=== PATIENT | female | born 1970 | race Caucasian/White ===

== ENCOUNTER 2016-12-15 06:43 | Day surgery (SDC) | payer BC ==
--- NOTE | ~2016-12-15 | EGD ---
EGD REPORT [facility] [address] [place] [address] NAME: SHANIA ESPINAL : [birth year] [place]US : [place] [facility] [place] [id number] AGE: 46 ADM/REG DATE : 12/15/16 MR#: [id number] REPORT SERV DATE: 12/15/16 DICTATED BY: MEET MONTANO DATE: 12/15/16 REPORT STATUS : Draft TRANS[facility]IBED BY: [facility] DATE: 12/15/16 [facility] Center Patient Name: Shania Espinal Date of : 1970 Attending MD: MEET MONTANO MD Procedure Date No Time: 12/15/2016 Procedure: Upper GI endoscopy Indications: Dysphagia, Heartburn; Nexium 40mg bid; Zantac qhs. Patient Profile: Informed consent was obtained from the patient by me prior to the procedure. Risks, benefits, and alternatives were discussed including the risk of bleeding, perforation, infection, reaction to medicine, missed lesion, and cardiopulmonary complications. Referring MD: SHMUEL ZAMUDIO MD Medicines: Monitored Anesthesia Care Complications: No immediate complications. Procedure: Pre-Anesthesia Assessment: - ASA Grade Assessment: III - A patient with severe systemic disease. After obtaining informed consent, the endoscope was passed under direct vision. Throughout the procedure, the patient's blood pressure, pulse, and oxygen saturations were monitored continuously. The GIF [id number] was introduced through the mouth, and advanced to the second part of duodenum. The endoscope was withdrawn with careful examination all mucosal surfaces including retroflexion stomach. The upper GI endoscopy was accomplished without difficulty. The patient tolerated the procedure well. Findings: The first part of the duodenum and 2nd part of the duodenum were normal. Biopsies were taken with a cold forceps for histology. The entire examined stomach was normal. The Z-line was irregular one 0.5cm tongue, no nodules. Biopsies were taken with a cold forceps for histology. The examined esophagus was normal. Biopsies were taken with a cold forceps for histology from mid and upper. 51F Savary dilation performed over guidewire held in antrum; mild resistance to dilation; endoscopic visualization afterwards no mucosal breaks. Impression: - Normal first part of the duodenum and 2nd part of the duodenum. Biopsied. - Normal stomach. - Z-line irregular,. Biopsied. EGD REPORT [address] [address] NAME: SHANIA ESPINAL : [birth year] STATUS : [facility]#: [id number] AGE: 46 ADM/REG DATE : 12/15/16 MR#: [id number] REPORT SERV DATE: 12/15/16 DICTATED BY: MEET MONTANO DATE: 12/15/16 REPORT STATUS : Draft TRANSCRIBED BY: [facility] DATE: 12/15/16 - Normal esophagus. Biopsied. Dilated. Recommendation: - Patient has a contact number available for emergencies. The signs and symptoms of potential delayed complications were discussed with the patient. Return to normal activities tomorrow. Written discharge instructions were provided to the patient. - Regular diet. - Await pathology results. - Taper Nexium to 20mg bid. Procedure Code(s): --- Professional --- 81593, Esophagogastroduodenoscopy, flexible, transoral; with insertion of guide wire followed by passage of dilator(s) through esophagus over guide wire 97339, Esophagogastroduodenoscopy, flexible, transoral; with biopsy, single or multiple Diagnosis Code(s): --- Professional --- K22.8, Other specified diseases of esophagus R13.10, Dysphagia, unspecified R12, Heartburn CPT copyright 2013 [employer]. All rights reserved. The codes documented in this report are preliminary and upon remote medical coder review may be revised to meet current compliance requirements. MEET MONTANO MD 12/15/2016 8:37 AM This report has been signed electronically. Number of Addenda: 0 Note Initiated On: 12/15/2016 8:15 AM Scope Withdrawal Time 0 hours 0 minutes 0 seconds [address] [id number]
[~2016-12-15 06:43] MED LIST: ATARAX50B PO; BENTYL10 PO; BUPAP1 TAB PO; DEPAKOT250 PO; DEPAKOT500 PO; EFFEXXR75 PO; GEODON60 MG PO; GEODON80 PO; KLONO1 PO; LORTAB10 PO; MULTIVIT/MIN PO; NEUR400 PO; NEUR800 PO; NORCO1 TA1 PO; RESTORIL30 MG PO; SYN075 PO; SYN112 PO; T PO; VITAMIN D31000 UNIT PO; WELCHOL 625 MG625 MG PO; X5 PO; ZANAFLEX 4 MG TA4 MG PO
== END 2016-12-15 23:59 | disposition home or self-care (01) ==
LOC: DMU 06:43
PROVIDERS: Internal Medicine Gastroenterology
PROC: 0DB58ZX Excision of Esophagus, Via Natural or Artificial Opening Endoscopic, Diagnostic (ICD-10-PCS; 2016-12-15)
PROC: 0D758ZZ Dilation of Esophagus, Via Natural or Artificial Opening Endoscopic (ICD-10-PCS; principal; 2016-12-15 08:00)
PROC: 0DB98ZX Excision of Duodenum, Via Natural or Artificial Opening Endoscopic, Diagnostic (ICD-10-PCS; 2016-12-15 08:00)
DX: K21.0 Gastro-esophageal reflux disease with esophagitis (principal); M79.7 Fibromyalgia; K22.8 Other specified diseases of esophagus; G47.33 Obstructive sleep apnea (adult) (pediatric); E03.9 Hypothyroidism, unspecified; F31.9 Bipolar disorder, unspecified; F41.9 Anxiety disorder, unspecified; F32.9 Major depressive disorder, single episode, unspecified; G43.909 Migraine, unspecified, not intractable, without status migrainosus; M19.90 Unspecified osteoarthritis, unspecified site; K58.9 Irritable bowel syndrome, unspecified; Z88.5 Allergy status to narcotic agent; Z90.710 Acquired absence of both cervix and uterus
CPT/HCPCS: 88305